=== PATIENT | female | born 1995 | race American Indian/Alaskan Native ===

== ENCOUNTER → 2016-10-29 20:44 | Emergency (ER) | payer MEDICAID | END | disposition left against medical advice (07) | LOC: ED 20:44 | DX: R10.9 Unspecified abdominal pain (principal); Z88.0 Allergy status to penicillin; Z53.21 Procedure and treatment not carried out due to patient leaving prior to being seen by health care provider ==

== ENCOUNTER 2017-07-13 12:09 | Emergency (ER) | payer SELFPAY ==
[2017-07-13 12:37] VITALS: BP 107/70
--- NOTE | 2017-07-13 12:47 | Emergency Department Report ---
ED Dysuria HPI - HPI Chief Complaint: Urogenital-Female Stated Complaint: VAGINAL PAIN Duration: 3 Days Severity: Moderate Symptoms: Dysuria: Yes, Frequency: No, Suprapubic Pain: No, Flank Pain: No, Fever: No, Hematuria: No, Abdominal Pain: No, Previous UTI's: Yes ED Review of Systems ROS: Stated complaint: VAGINAL PAIN Other details as noted in HPI Comment: All other systems reviewed and negative Constitutional: denies: fever Gastrointestinal: denies: abdominal pain Genitourinary: dysuria, discharge Musculoskeletal: denies: back pain ED Past Medical Hx - Past Medical History Previous Medical History?: Yes Hx Asthma: Yes - Surgical History Past Surgical History?: Yes Additional Surgical History: c section - Social History Smoking Status: Never Smoker Substance Use Type: Alcohol, Marijuana - Medications Home Medications: Home Medications Medication Instructions Recorded Confirmed Last Taken Type metroNIDAZOLE [Flagyl] 2,000 mg PO ONCE #4 tablet 12/18/13 Unknown Rx Dysuria Exam - Exam General: Vital signs noted. No distress. Alert and acting appropriately. Exam: Yes Moist Mucous Membranes, No CVA Tenderness, No Abdominal Tenderness, No Rigidity or Guarding ED Course Vital Signs 07/13/17 12:31 Temperature 98.5 F Pulse Rate 95 H Respiratory 16 Rate Blood Pressure 107/70 O2 Sat by Pulse 96 Oximetry - Reevaluation(s) Reevaluation #1: 07/13/17 14:53 TO ER W DYSURIA SHE IS CO WITH STI 2 [employer] CONCERNED EXPOSED TO STI EMPIRIC TX ED Medical Decision Making - Medical Decision Making CONCERNED FOR STI - Differential Diagnosis UTI/STD Critical care attestation.: If time is entered above; I have spent that time in minutes in the direct care of this critically ill patient, excluding procedure time. ED Disposition Clinical Impression: Dysuria, STD (female) Disposition: DC-01 TO HOME OR SELFCARE Is pt being admited?: No Does the pt Need Aspirin: No Condition: Stable Instructions: Sexually Transmitted Diseases (ED) Additional Instructions: SAFE SEX HYDRATE WELL MED ORDERED TODAY EAT YOGURT DAILY FOR SEVERAL DAYS GIVEN ANTIBIOTICS FOLLOW UP PCP IN 1 WEEK TO ENSURE SYMPTOMS ARE GONE. Referrals: PRIMARY CARE, [Primary Care Provider] - 3-5 Days [facility] [Outside] - 3-5 Days Time of Disposition: 14:32
[2017-07-13 14:04] LABS: HCG Qualitative,Urine Negative (Negative)
[2017-07-13 14:07] LABS: Bilirubin,Urine NEG (Negative); Blood,Urine NEG (Negative); Color,Urine Yellow (Yellow); Mucus,Urine 3+ /HPF; Nitrite,Urine NEG (Negative)
[2017-07-13] MEDS ORDERED: ROCEPHIN IM ONE (14:29)
[2017-07-13] MEDS ORDERED: XYLOCAINE 1% MPF 5 mL INFILTRATI ONE (14:29)
[2017-07-13] MEDS ORDERED: ZITHROMAX PO ONE (14:30)
[2017-07-13] MEDS ORDERED: DIFLUCAN PO ONE ×2 (15:05→16:00)
== END 2017-07-13 15:09 | disposition home or self-care (01) ==
LOC: ED 12:09
DX: R30.0 Dysuria (principal); F12.10 Cannabis abuse, uncomplicated
CPT/HCPCS: 81001; 81025; 96372; 99282; J0696

== ENCOUNTER 2018-06-30 23:11 | Emergency (ER) | payer OTHER ==
[2018-07-01] MEDS ORDERED: MORPHINE IV ONE (00:39)
[2018-07-01] MEDS ORDERED: TORADOL IV ONE (00:39)
[2018-07-01] MEDS ORDERED: ZOFRAN IV ONE (00:39)
[2018-07-01] MEDS ORDERED: MORPHINE ONE (00:54)
[2018-07-01 01:02] LABS: HCG Qualitative,Urine Negative (Negative)
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
[2018-07-01 03:04] VITALS: BP 118/70
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
== END 2018-07-01 05:02 | disposition home or self-care (01) ==
LOC: ED 23:11
DX: S09.90XA Unspecified injury of head, initial encounter (principal); S16.1XXA Strain of muscle, fascia and tendon at neck level, initial encounter; S29.012A Strain of muscle and tendon of back wall of thorax, initial encounter; J45.909 Unspecified asthma, uncomplicated; F17.200 Nicotine dependence, unspecified, uncomplicated; F12.10 Cannabis abuse, uncomplicated; V49.9XXA Car occupant (driver) (passenger) injured in unspecified traffic accident, initial encounter; Y93.89 Activity, other specified; Y99.8 Other external cause status; Y92.410 Unspecified street and highway as the place of occurrence of the external cause
CPT/HCPCS: 70450; 71046; 72100; 72125; 81025; 96374; 96375; 99285; J1885; J2270; J2405